=== PATIENT | female | born 1960 | race Two or more races ===

== ENCOUNTER 2020-03-04 08:57 | Outpatient (CLI) | payer OTHER ==
[~2020-03-04 08:57] MED LIST: ALTACE10 MG; LIPITOR40 MG; METFORMIN HCL500 MG PO; SYNTHROID50 MCG; TOPROL XL50 MG
== END 2020-03-04 09:01 | disposition home or self-care (01) ==
LOC: SONOGRAMA 08:57
PROVIDERS: ATTEND Pathology Anatomic Pathology & Clinical Pathology
DX: E04.1 Nontoxic single thyroid nodule (principal)